=== PATIENT | female | born 2000 | race African-American/Black ===

== ENCOUNTER 2019-11-27 20:32 | Inpatient (IN) | payer MEDICARE, MEDICAID ==
[~2019-11-27] VITALS: Ht 162.6 cm; Wt 47.0 kg
[2019-11-27] MEDS ORDERED: NITROGLYCERIN 50 MG/D5% WATER 250 ML IV PRN (20:44)
[2019-11-27] MEDS ORDERED: MORPHINE SULFATE 2 MG/ML SYRINGE IVP ONE (20:45)
[2019-11-27] MEDS ORDERED: ACETAMINOPHEN 500 MG TABLET PO ONE (21:00)
[2019-11-27] MEDS ORDERED: ACETAMINOPHEN 325 MG TABLET PO PRN (21:15)
[2019-11-27] MEDS ORDERED: ONDANSETRON HCL 4 MG/2 ML VIAL IVP PRN (21:15)
[2019-11-27 21:20] LABS: ABG A-A DIFF O2 552.5 mmHg (10-20.0); ABG BASE EXCESS -2.6 mmol/L (-2.0-3.0); ABG CARBOXYHEMOGLOBIN 0.4 % (0.0-3.0); ABG HCO3 22.9 mmol/L (22.0-26.0); ABG METHEMOGLOBIN 0.4 % (0.0-1.5); ABG OXYGEN CONTENT 12.3 mL/dL (15.0-23.0); ABG OXYGEN SATURATION 98.3 % (95.0-98.0); ABG OXYHEMOGLOBIN 97.5 % (94.0-100.0); ABG PCO2 28 mmHg (35-45); ABG PH 7.492 (7.350-7.450); ABG TOTAL HEMOGLOBIN 8.8 G/dL (12.0-18.0); PO2, ARTERIAL BG 132.8 mmHg (80.0-100.0); SOURCE, BLOOD GAS ARTERIAL; TEMPERATURE, FAHRENHEIT, BG 98.6 FAHREN (96.0-98.6)
[2019-11-27 21:21] LABS: O2 DEVICE,BLOOD GAS NRB (ROOM AIR); SITE, BLOOD GAS RT RADIAL
[2019-11-27] MEDS ORDERED: LORazepam 2 MG/ML VIAL IVP ONE (21:45)
[2019-11-27 21:51] LABS: BASOPHILS % (AUTO) 1.2 % (0.0-2.0); EOSINOPHILS % (AUTO) 0.6 % (1.0-6.0); HEMATOCRIT 24.7 % (36-46); HEMOGLOBIN 8.1 g/dL (12.0-16.0); LYMPHOCYTES # (AUTO) 1.6 K/uL (1.0-4.8); LYMPHOCYTES % (AUTO) 9.5 % (22.0-44.0); MEAN CORPUSCULAR HEMOGLOBIN 26.7 pg (26.0-34.0); MEAN CORPUSCULAR HGB CONC 32.7 G/dL (31.0-37.0); MEAN CORPUSCULAR VOLUME 82 fL (80-100); MONOCYTES # (AUTO) 0.3 K/uL (0.1-1.0); MONOCYTES % (AUTO) 1.7 % (2.0-9.0); NEUTROPHILS # (AUTO) 14.2 K/uL (1.8-7.7); PLATELET COUNT (AUTO) 521 K/uL (150-450); RED BLOOD CELL COUNT(AUTO) 3.02 MIL/uL (4.00-5.20); RED CELL DISTRIBUTION WIDTH 21.1 % (11.5-14.5)
[2019-11-27 22:12] LABS: CALCIUM, TOTAL 8.8 mg/dL (8.8-10.5); CREATININE 19.84 mg/dL (0.60-1.30); POTASSIUM 5.8 mmol/L (3.5-5.1)
[2019-11-27 22:37] LABS: ALBUMIN 2.7 g/dL (3.4-5.0); BILIRUBIN,TOTAL 0.6 mg/dL (0.1-1.0); TOTAL PROTEIN, SERUM 6.8 g/dL (6.4-8.2)
[2019-11-27] MEDS ORDERED: CefTRIAXone 1 GM/DEXTROSE 50 ML IV ONE (22:45)
[2019-11-27] MEDS ORDERED: DEXTROSE 50%-WATER 25 GM/50 ML SYRINGE IVP ONE (22:45)
[2019-11-27] MEDS ORDERED: INSULIN REGULAR, HUMAN 100 UNITS/ML IVP ONE (22:45)
[2019-11-27] MEDS ORDERED: CALCIUM GLUCONATE 100 MG/ML 10 ML IVP ONE (22:45)
[2019-11-27] MEDS ORDERED: AZITHROMYCIN 500 MG TABLET PO ONE (22:45)
[2019-11-28] MEDS ORDERED: PANTOPRAZOLE SODIUM 40 MG/VIAL IVP ONE (00:15)
[2019-11-28 01:24] LABS: AMPHET/METH SCREEN,URINE NEGATIVE (NEGATIVE); BARBITURATE SCREEN, URINE NEGATIVE (NEGATIVE); BENZODIAZEPINES SCREEN,URINE NEGATIVE (NEGATIVE); CANNABINOID SCREEN,URINE NEGATIVE (NEGATIVE); COCAINE SCREEN,URINE NEGATIVE (NEGATIVE); METHADONE SCREEN, URINE NEGATIVE (NEGATIVE); OPIATE SCREEN,URINE NEGATIVE (NEGATIVE)
[2019-11-28 01:53] LABS: PHENCYCLIDINE SCREEN,URINE NEGATIVE (NEGATIVE)
[2019-11-28] MEDS ORDERED: CloNIDine HCL 0.2 MG TABLET PO ONE (03:15)
[2019-11-28 05:39] LABS: LYMPHOCYTES # (AUTO) 1.5 K/uL (1.0-4.8); LYMPHOCYTES % (AUTO) 10.6 % (22.0-44.0); MONOCYTES # (AUTO) 0.3 K/uL (0.1-1.0)
[2019-11-28 05:42] LABS: EOSINOPHILS % (AUTO) 0.7 % (1.0-6.0); HEMATOCRIT 21.7 % (36-46); MEAN CORPUSCULAR HEMOGLOBIN 25.7 pg (26.0-34.0); MEAN CORPUSCULAR HGB CONC 31.5 G/dL (31.0-37.0); MEAN CORPUSCULAR VOLUME 82 fL (80-100); MONOCYTES % (AUTO) 2.2 % (2.0-9.0); NEUTROPHILS # (AUTO) 12.4 K/uL (1.8-7.7); PLATELET COUNT (AUTO) 405 K/uL (150-450); RED BLOOD CELL COUNT(AUTO) 2.66 MIL/uL (4.00-5.20)
[2019-11-28 05:46] LABS: C-REACTIVE PROTEIN QUANT 4.1 mg/dL (0.00-0.30); CALCIUM, TOTAL 8.3 mg/dL (8.8-10.5); CREATININE 18.89 mg/dL (0.60-1.30); MAGNESIUM 2.1 mg/dL (1.80-2.40); POTASSIUM 4.6 mmol/L (3.5-5.1)
[2019-11-28 05:53] LABS: NEUTROPHILS % (AUTO) 85.5 % (40.0-70.0)
[2019-11-28] MEDS ORDERED: OxyCODONE HCL/ACETAMINOPHEN 5-325 MG TABLET PO PRN (06:00)
[2019-11-28] MEDS ORDERED: ACETAMINOPHEN 325 MG TABLET PO PRN (06:00)
[2019-11-28] MEDS ORDERED: 0.9% SODIUM CHLORIDE 10 ML SYRINGE IVP PRN (06:00)
[2019-11-28] MEDS ORDERED: MAGNESIUM HYDROXIDE SUSPENSION 30 ML UDCUP PO PRN (06:00)
[2019-11-28 06:03] LABS: PHOSPHORUS 13.6 mg/dL (2.5-4.9)
[2019-11-28] MEDS ORDERED: VANCOMYCIN HCL 1 GM/D5% WATER 200 ML IV ONE (06:15)
[2019-11-28] MEDS ORDERED: VANCOMYCIN HCL 1 GM/D5% WATER 200 ML IV PRN (06:15)
[2019-11-28] MEDS ORDERED: PIPERACILLIN SODIUM/TAZOBACTAM 0.75 GM in DEXTROSE 5%-WATER 50 ML IV PRN (06:15)
[2019-11-28 06:22] LABS: HEMOGLOBIN 6.9 g/dL (12.0-16.0)
[2019-11-28 06:30] LABS: D-DIMER 4.07 mg/L FEU (0.00-0.50)
[2019-11-28] MEDS: -POST HEMODIALYSIS NOTE- MISC SCH (09:00)
[2019-11-28] MEDS: HEPARIN SODIUM,PORCINE 5,000 UNITS/ML VIAL SQ SCH ×3 (09:44→20:16)
[2019-11-28] MEDS: FAMOTIDINE 10 MG/ML 2 ML VIAL IVP SCH (09:45)
[2019-11-28] MEDS: DOCUSATE SODIUM 100 MG CAPSULE PO SCH ×2 (09:46→20:16)
[2019-11-28] MEDS: ONDANSETRON HCL 4 MG/2 ML VIAL IVP PRN (10:15)
[2019-11-28] MEDS: LABETALOL HCL 5 MG/ML 20 ML VIAL IVP PRN (11:21)
[2019-11-28] MEDS: PIPERACILLIN SODIUM/TAZOBACTAM 2.25 GM in DEXTROSE 5%-WATER 50 ML IV SCH ×2 (11:21→18:31)
[2019-11-28 13:38] LABS: GLUCOSE,POINT OF CARE 90 MG/DL (70-110)
[2019-11-28 13:41] LABS: INR 1.1 (0.9-1.1); PROTHROMBIN TIME 11.5 SEC (9.4-11.6)
[2019-11-28] MEDS: AmLODIPine BESYLATE 5 MG TABLET PO SCH (13:57)
[2019-11-28] MEDS: CALCIUM ACETATE 667 MG CAPSULE PO SCH (18:18)
[2019-11-29] MEDS: PIPERACILLIN SODIUM/TAZOBACTAM 2.25 GM in DEXTROSE 5%-WATER 50 ML IV SCH ×3 (02:53→18:28)
[2019-11-29 07:43] LABS: EOSINOPHILS % (AUTO) 3.5 % (1.0-6.0); LYMPHOCYTES % (AUTO) 10.4 % (22.0-44.0); MEAN CORPUSCULAR HEMOGLOBIN 27.1 pg (26.0-34.0); MEAN CORPUSCULAR HGB CONC 33.3 G/dL (31.0-37.0); MEAN CORPUSCULAR VOLUME 81 fL (80-100); MONOCYTES # (AUTO) 0.2 K/uL (0.1-1.0); NEUTROPHILS # (AUTO) 8.1 K/uL (1.8-7.7); NEUTROPHILS % (AUTO) 83.1 % (40.0-70.0); PLATELET COUNT (AUTO) 368 K/uL (150-450); RED BLOOD CELL COUNT(AUTO) 2.58 MIL/uL (4.00-5.20); RED CELL DISTRIBUTION WIDTH 20.3 % (11.5-14.5)
[2019-11-29 08:01] LABS: CALCIUM, TOTAL 7.9 mg/dL (8.8-10.5); CREATININE 17.9 mg/dL (0.60-1.30); POTASSIUM 5.8 mmol/L (3.5-5.1)
[2019-11-29 08:03] LABS: % IRON SATURATION 21.8 % (22-44)
[2019-11-29] MEDS ORDERED: SODIUM ZIRCONIUM CYCLOSILICATE 5 GM POWDER PACKET PO ONE (08:15)
[2019-11-29] MEDS: AmLODIPine BESYLATE 5 MG TABLET PO SCH ×2 (08:28→21:32)
[2019-11-29] MEDS: CALCIUM ACETATE 667 MG CAPSULE PO SCH ×3 (08:28→17:34)
[2019-11-29] MEDS: DOCUSATE SODIUM 100 MG CAPSULE PO SCH (08:28)
[2019-11-29] MEDS: FAMOTIDINE 10 MG/ML 2 ML VIAL IVP SCH (08:28)
[2019-11-29] MEDS: HEPARIN SODIUM,PORCINE 5,000 UNITS/ML VIAL SQ SCH (08:28)
[2019-11-29] MEDS: EPOETIN ALFA 10,000 UNITS/ML VIAL SQ SCH (08:28)
[2019-11-29 08:46] LABS: PHOSPHORUS 13.8 mg/dL (2.5-4.9)
[2019-11-29] MEDS: -POST HEMODIALYSIS NOTE- MISC SCH (09:14)
[2019-11-29] MEDS ORDERED: DOCUSATE SODIUM 100 MG CAPSULE PO PRN (11:00)
[2019-11-29] MEDS: OxyCODONE HCL/ACETAMINOPHEN 5-325 MG TABLET PO PRN (11:29)
[2019-11-29] MEDS: HydrALAZINE HCL 25 MG TABLET PO SCH ×3 (11:30→23:23)
[2019-11-29 12:44] LABS: INFLUENZA TYPE A NEGATIVE FOR TYPE A (NEGATIVE); INFLUENZA TYPE B NEGATIVE FOR TYPE B (NEGATIVE)
[2019-11-29 14:00] VITALS: BP 149/96
[2019-11-29 16:40] VITALS: BP 154/106
[2019-11-29 19:34] LABS: SPECIMENTYPE,BODY FLUID PERITONEAL
[2019-11-29 20:47] LABS: APPEARANCE,UNSPUN,BODY FLUID HAZY (CLEAR); BASOPHILS,BODY FLUID 0 %; COLOR,BODY FLUID LT YELLOW (LT YELLOW); EOSINOPHILS,BF (ANAL) 0 %; LYMPHOCYTES,BODY FLUID 28 %; MONOCYTES,BODY FLUID 2 %; NEUTROPHILS,BODY FLUID 70 %; OTHER CELLS,BODY FLUID 0; TOTAL VOLUME,BODY FLUID 35 mL; WBC, BODY FLUID 32 /cu. mm.
[2019-11-29 20:52] LABS: APPEARANCE,SPUN,BODY FLUID HAZY (CLEAR)
[2019-11-29 21:04] VITALS: BP 158/102
[2019-11-30] VITALS (12 sets, daily range): BP systolic 148–189; BP diastolic 92–117
[2019-11-30] MEDS: PIPERACILLIN SODIUM/TAZOBACTAM 2.25 GM in DEXTROSE 5%-WATER 50 ML IV SCH ×3 (01:25→21:33)
[2019-11-30] MEDS ORDERED: SODIUM CHLORIDE 0.9% 250 ML IV ONE (01:42)
[2019-11-30] MEDS: HydrALAZINE HCL 25 MG TABLET PO SCH ×4 (05:40→23:36)
[2019-11-30] MEDS: HydrALAZINE HCL 20 MG/ML VIAL IVP PRN ×2 (05:41→18:46)
[2019-11-30] MEDS: OxyCODONE HCL/ACETAMINOPHEN 5-325 MG TABLET PO PRN ×3 (06:49→21:33)
[2019-11-30] MEDS: CALCIUM ACETATE 667 MG CAPSULE PO SCH ×3 (08:42→18:22)
[2019-11-30] MEDS: AmLODIPine BESYLATE 5 MG TABLET PO SCH ×2 (08:42→21:32)
[2019-11-30] MEDS: PANTOPRAZOLE SODIUM 40 MG DR TABLET PO SCH (08:42)
[2019-11-30] MEDS: MORPHINE SULFATE 2 MG/ML SYRINGE IVP PRN ×4 (08:44→23:37)
[2019-11-30 09:02] LABS: EOSINOPHILS % (AUTO) 5.6 % (1.0-6.0); HEMATOCRIT 24.2 % (36-46); HEMOGLOBIN 8.2 g/dL (12.0-16.0); LYMPHOCYTES # (AUTO) 1.4 K/uL (1.0-4.8); LYMPHOCYTES % (AUTO) 15.7 % (22.0-44.0); MEAN CORPUSCULAR HEMOGLOBIN 27.2 pg (26.0-34.0); MEAN CORPUSCULAR HGB CONC 34.1 G/dL (31.0-37.0); MEAN CORPUSCULAR VOLUME 80 fL (80-100); MONOCYTES # (AUTO) 0.3 K/uL (0.1-1.0); MONOCYTES % (AUTO) 2.9 % (2.0-9.0); NEUTROPHILS # (AUTO) 6.6 K/uL (1.8-7.7); NEUTROPHILS % (AUTO) 74.8 % (40.0-70.0); PLATELET COUNT (AUTO) 486 K/uL (150-450); RED BLOOD CELL COUNT(AUTO) 3.03 MIL/uL (4.00-5.20); RED CELL DISTRIBUTION WIDTH 20.1 % (11.5-14.5)
[2019-11-30 09:11] LABS: ALBUMIN 2.2 g/dL (3.4-5.0); BILIRUBIN,TOTAL 0.5 mg/dL (0.1-1.0); CALCIUM, TOTAL 8.8 mg/dL (8.8-10.5); CREATININE 16.32 mg/dL (0.60-1.30); MAGNESIUM 1.9 mg/dL (1.80-2.40); POTASSIUM 4.1 mmol/L (3.5-5.1); TOTAL PROTEIN, SERUM 6.6 g/dL (6.4-8.2); VANCOMYCIN,RANDOM 23.1 mcg/mL (25.0-50.0)
[2019-11-30 09:48] LABS: PHOSPHORUS 11.2 mg/dL (2.5-4.9)
[2019-11-30] MEDS: LABETALOL HCL 5 MG/ML 20 ML VIAL IVP PRN (14:05)
[2019-11-30] MEDS: CloNIDine HCL 0.1 MG TABLET PO SCH ×2 (15:11→21:32)
[2019-11-30] MEDS ORDERED: ALPRAZolam 0.25 MG TABLET PO PRN (16:00)
[2019-11-30] MEDS ORDERED: LOPERAMIDE HCL 2 MG CAPSULE PO PRN (16:00)
[2019-11-30] MEDS ORDERED: LOPERAMIDE HCL 2 MG CAPSULE PO ONE (16:00)
[2019-11-30] MEDS ORDERED: COLCHICINE 0.6 MG TABLET PO ONE (17:00)
[2019-11-30] MEDS: ONDANSETRON HCL 4 MG/2 ML VIAL IVP PRN (18:25)
[2019-11-30] MEDS: METOPROLOL SUCCINATE 50 MG ER TABLET PO SCH (21:32)
[2019-12-01] VITALS (8 sets, daily range): BP systolic 114–147; BP diastolic 68–98
[2019-12-01] MEDS: ONDANSETRON HCL 4 MG/2 ML VIAL IVP PRN (00:40)
[2019-12-01] MEDS: HydrALAZINE HCL 25 MG TABLET PO SCH ×3 (05:40→18:00)
[2019-12-01] MEDS: CloNIDine HCL 0.1 MG TABLET PO SCH ×3 (09:00→20:28)
[2019-12-01] MEDS: METOPROLOL SUCCINATE 50 MG ER TABLET PO SCH ×2 (09:00→20:26)
[2019-12-01] MEDS: AmLODIPine BESYLATE 5 MG TABLET PO SCH ×2 (09:00→20:26)
[2019-12-01] MEDS: CALCIUM ACETATE 667 MG CAPSULE PO SCH ×3 (10:02→18:28)
[2019-12-01] MEDS: PANTOPRAZOLE SODIUM 40 MG DR TABLET PO SCH (10:03)
[2019-12-01] MEDS: EPOETIN ALFA 10,000 UNITS/ML VIAL SQ SCH (10:03)
[2019-12-01] MEDS: PIPERACILLIN SODIUM/TAZOBACTAM 2.25 GM in DEXTROSE 5%-WATER 50 ML IV SCH ×2 (10:05→22:44)
[2019-12-01] MEDS ORDERED: PIPERACILLIN SODIUM/TAZOBACTAM 0.75 GM in DEXTROSE 5%-WATER 50 ML IV PRN (14:30)
[2019-12-01] MEDS ORDERED: -POST HEMODIALYSIS NOTE- MISC SCH (16:00)
[2019-12-01] MEDS ORDERED: LIDOCAINE/PF 1% 2 ML VIAL ONE (16:48)
[2019-12-01] MEDS: MORPHINE SULFATE 2 MG/ML SYRINGE IVP PRN (22:54)
[2019-12-02] MEDS: MORPHINE SULFATE 2 MG/ML SYRINGE IVP PRN (04:27)
[2019-12-02 04:28] VITALS: BP 143/101
[2019-12-02] MEDS: HydrALAZINE HCL 25 MG TABLET PO SCH ×3 (05:04→13:16)
[2019-12-02] MEDS: CALCIUM ACETATE 667 MG CAPSULE PO SCH ×2 (08:07→13:16)
[2019-12-02] MEDS: PANTOPRAZOLE SODIUM 40 MG DR TABLET PO SCH (08:08)
[2019-12-02] MEDS: METOPROLOL SUCCINATE 50 MG ER TABLET PO SCH (08:08)
[2019-12-02] MEDS: CloNIDine HCL 0.1 MG TABLET PO SCH ×2 (08:08→15:54)
[2019-12-02] MEDS: AmLODIPine BESYLATE 5 MG TABLET PO SCH (08:08)
[2019-12-02 08:43] VITALS: BP 128/81
[2019-12-02] MEDS ORDERED: VANCOMYCIN HCL 1 GM/D5% WATER 200 ML IV ONE (10:00)
[2019-12-02] MEDS: PIPERACILLIN SODIUM/TAZOBACTAM 2.25 GM in DEXTROSE 5%-WATER 50 ML IV SCH (10:36)
[2019-12-02] MEDS: OxyCODONE HCL/ACETAMINOPHEN 5-325 MG TABLET PO PRN (10:39)
[2019-12-02] MEDS ORDERED: HYDR25TA84 PO (10:52)
[2019-12-02] MEDS ORDERED: PHOSLOC PO (10:52)
[2019-12-02] MEDS ORDERED: PRED5 PO (10:52)
[2019-12-02] MEDS ORDERED: AMLO5TAB66 PO (10:52)
[2019-12-02] MEDS ORDERED: PRED20 PO (10:52)
[2019-12-02] MEDS ORDERED: CLON0.1T83 PO (10:52)
[2019-12-02] MEDS ORDERED: PRED10 PO (10:52)
[2019-12-02 11:15] VITALS: BP 122/68
[2019-12-02 15:42] VITALS: BP 122/64
[2019-12-02 16:01] VITALS: BP 130/96
== END 2019-12-02 16:05 | disposition home or self-care (01) | DRG 871 ==
LOC: EMS 20:33 → 5N 11-28 05:57
PROVIDERS: ADMIT Internal Medicine; ATTEND Internal Medicine
PROC: 5A1D70Z Performance of Urinary Filtration, Intermittent, Less than 6 Hours Per Day (ICD-10-PCS; principal; 2019-11-28)
PROC: 5A1D70Z Performance of Urinary Filtration, Intermittent, Less than 6 Hours Per Day (ICD-10-PCS; 2019-11-29)
PROC: 5A1D70Z Performance of Urinary Filtration, Intermittent, Less than 6 Hours Per Day (ICD-10-PCS; 2019-11-30)
PROC: 5A1D70Z Performance of Urinary Filtration, Intermittent, Less than 6 Hours Per Day (ICD-10-PCS; 2019-12-01)
PROC: 5A1D70Z Performance of Urinary Filtration, Intermittent, Less than 6 Hours Per Day (ICD-10-PCS; 2019-12-02)
DX: A41.9 Sepsis, unspecified organism (principal); J18.9 Pneumonia, unspecified organism; J96.01 Acute respiratory failure with hypoxia; N18.6 End stage renal disease; E43 Unspecified severe protein-calorie malnutrition; I12.0 Hypertensive chronic kidney disease with stage 5 chronic kidney disease or end stage renal disease; I30.9 Acute pericarditis, unspecified; Z68.1 Body mass index [BMI] 19.9 or less, adult; I16.1 Hypertensive emergency; J81.1 Chronic pulmonary edema; D64.9 Anemia, unspecified; E87.5 Hyperkalemia; Z99.2 Dependence on renal dialysis; Z20.828 Contact with and (suspected) exposure to other viral communicable diseases; Z91.19 Patient's noncompliance with other medical treatment and regimen
CPT/HCPCS: 36600; 71250; 82728; 82805; 83540; 83550; 83615; 83735; 84100; 84145; 85379; 86140; 86850; 86900; 86901; 86923; 87040; 87070; 87205; 87804; 89051; 93005; 93306; 99291; C9113; J0360; J0610; J0696; J0885; J1644; J1815; J2060; J2270; J2405; J2543; J3370; J3490; J7050; J7060